=== PATIENT | female | born 1955 | race Native Hawaiian/Other Pacific Islander ===

== ENCOUNTER 2024-07-18 08:59 | Emergency (ER) | payer OTHER, SELFPAY ==
[2024-07-18 09:17] VITALS: PULSE 74; O2SAT 97
[2024-07-18 09:19] VITALS: BP 110/53; PULSE 70; RESP 16; TEMP 36.6; O2SAT 97; BMI 24.5
--- NOTE | 2024-07-18 09:26 | ED_ITS ---
HPI - Back Pain/Injury General Chief Complaint: Back Pain/Injury Stated Complaint: Possible Sciatica flare up Time Seen by Provider: 07/18/24 09:21 History of Present Illness HPI Narrative: Patient brought here by daughter for complaints of low lumbar pain/sacral pain that does not radiate. Patient has history of sciatica but she states does not feel the same. Patient was getting up from a seated position and felt pain in the sacrum yesterday. Since then it has been painful. No prior history of lumbar surgery. Denies any fall or injury. No saddle paresthesia. No leg or foot numbness tingling or weakness. No bowel or bladder incontinence or retention. Feet exposed. Lower back exposed. Patient denies any fever chills. No urinary complaints. Related Data Previous Rx's ?Medication ?Instructions ?Recorded baclofen 20 mg tablet 20 mg PO TID PRN pain (scale score 07/18/24 4-6) #20 tabs Allergies Allergy/AdvReac Type Severity Reaction Status Date / Time No Known Drug Allergies Allergy Verified 07/18/24 09:21 Review of Systems Review of Systems Narrative: GENERAL: Negative chills, fatigue, malaise, fever, sweats. HEENT: Negative sinus pain, ear pain, sore throat RESPIRATORY: Negative dyspnea, cough CARDIOVASCULAR: Negative chest pain, palpitations GASTROINTESTINAL: Negative vomiting, nausea, abdominal pain : Negative dysuria, frequency, hematuria MUSCULOSKELETAL: Positive back, muscle or bony pain SKIN: Negative rash, skin lesions NEUROLOGIC: Negative weakness, numbness ROS Unobtainable: All systems reviewed & are unremarkable except as noted in HPI and below Exam Narrative Exam Narrative: GENERAL: in no distress, not toxic not dyspneic HEAD: Normocephalic. EYES: Pupils equal round ENT: Mucous membranes moist. NECK: Trachea midline. CARDIOVASCULAR: Regular rate and rhythm RESPIRATORY: Clear to auscultation. Breath sounds equal bilaterally. No wheezes, rales, or rhonchi. GASTROINTESTINAL: Abdomen soft, non-tender EXTREMITIES: No gross deformities. BACK: No flank tenderness. There is reproducible mid sacral tenderness. No midline tenderness or step-off of the lumbar spine. Increased pain with attempts to do side bend and leaning forward and back. In a seated position strong bilateral patellar reflexes and ankle flexion-extension. No pain with bilateral straight leg raises. Light touch intact to bilateral legs NEURO: AOx4. Clear speech SKIN: Warm and dry PSYCH: Not anxious, is cooperative Initial Vital Signs Initial Vital Signs: Vital Signs Pulse Rate 74 07/18/24 09:17 Pulse Oximetry 97 07/18/24 09:17 Course Orders Ordered: ED Orders 07/18/24 09:25 XR lumbar spine 2-3V Stat XR sacrum coccyx min 2V Stat Discontinued Medications Hydrocodone Bitart/Acetaminophen (Hydrocodone/Acet 5/325 Tablet) 1 tab PO NOW ONE Stop: 07/18/24 09:25 Last Admin: 07/18/24 10:10 Dose: 1 tab Documented By: VU Ketorolac Tromethamine (Ketorolac 30 Mg/Ml Vial) 30 mg IM NOW ONE Stop: 07/18/24 09:25 Last Admin: 07/18/24 10:10 Dose: 30 mg Documented By: VU Ondansetron HCl (Ondansetron 4 Mg Odt) 4 mg SL NOW ONE Stop: 07/18/24 09:25 Last Admin: 07/18/24 10:10 Dose: 4 mg Documented By: VU Vital Signs Vital signs: Vital Signs - 8 hr 07/18/24 09:17 07/18/24 09:19 07/18/24 09:30 Temperature 97.8 F Pulse Rate 74 70 66 Respiratory Rate 16 Blood Pressure 110/53 L Pulse Oximetry 97 97 97 Oxygen Delivery Method Room Air 07/18/24 09:30 07/18/24 09:48 07/18/24 09:48 Temperature Pulse Rate 64 Respiratory Rate Blood Pressure 117/53 L 128/57 L Pulse Oximetry 98 Oxygen Delivery Method 07/18/24 10:00 07/18/24 10:00 Temperature Pulse Rate 60 Respiratory Rate Blood Pressure 103/51 L Pulse Oximetry 97 Oxygen Delivery Method MDM - Back Pain/Injury Imaging Data X-ray lumbar spine: Radiologist's Impression: [address] [address] XRay Report Signed Patient: Alexa Ashraf MR#: [id number] : 1955 Acct:[id number] Age/Sex: 68 / F Date of Service: 07/18/24 Loc: ED Accession Number: [id number] Procedure: XR lumbar spine 2-3V Ordering Provider: Abdias Alberts MD PROCEDURE: XR LUMBAR SPINE 2-3V INDICATIONS: Pain/injury TECHNIQUE: 3 views of the lumbar spine were acquired. COMPARISON: None. FINDINGS: Bones: 5 [id number] vertebrae are present. There is mild leftward curvature of lumbar spine centered at L3 level. Straightening of normal lumbar lordosis is also seen with 3-4 mm retrolisthesis at L1-2 and L2-3 levels and 4 mm anterolisthesis at L3-4 and L4-5 levels. Loss of disc height, degenerative endplate changes and bilateral facet arthrosis throughout lumbar spine is seen. No vertebral body compression fractures. No suspicious bony lesions. Soft tissues: Overlying bowel gas pattern is normal. No suspicious soft tissue calcifications. IMPRESSION: No acute vertebral body compression fracture. [id number] degenerative disc disease throughout lumbar spine. Grade 1 spondylolisthesis throughout lumbar spine and mild levoscoliosis as above. Dictated by: Jb Clemente M.D. on 07/18/2024 at 9:49 Approved by: Jb Clemente M.D. on 07/18/2024 at 9:53 X-ray sacrum: Radiologist's Impression: [place] [id number] XRay Report Signed Patient: Alexa Ashraf MR#: [id number] : 1955 Acct:[id number] Age/Sex: 68 / F Date of Service: 07/18/24 Loc: ED Accession Number: [id number] Procedure: XR sacrum coccyx min 2V Ordering Provider: Abdias Alberts MD PROCEDURE: XR SACRUM COCCYX MIN 2V INDICATIONS: Pain/injury TECHNIQUE: 3 views of the sacrum and coccyx acquired. COMPARISON: None. FINDINGS: Bones: No fractures or dislocations. Osteoarthritic changes throughout visualized bony pelvis. Degenerative endplate changes are noted in visualized lower lumbar spine. No suspicious bony lesions. Soft tissues: Visualized bowel gas pattern is normal. No suspicious soft tissue densities. IMPRESSION: No acute sacral or coccygeal fracture. Osteoarthritis and degenerative disc disease as above. Dictated by: Jb Clemente M.D. on 07/18/2024 at 9:53 Approved by: Jb Clemente M.D. on 07/18/2024 at 9:54 [facility] Narrative Medical decision making narrative: Patient brought here by daughter for complaints of low lumbar pain/sacral pain that does not radiate. Patient has history of sciatica but she states does not feel the same. Patient was getting up from a seated position and felt pain in the sacrum yesterday. Since then it has been painful. No prior history of lumbar surgery. Denies any fall or injury. No saddle paresthesia. No leg or foot numbness tingling or weakness. No bowel or bladder incontinence or retention. Feet exposed. Lower back exposed.Patient denies any fever chills. No urinary complaints. After history and exam, exam is reassuring. Patient neurologically intact. X- ray lumbar spine and sacrum coccyx will be ordered. No MRI CT scan indicated. Daughter is driving. Toradol [place] Zofran will be ordered. [facility] Medical records reviewed: No recent visit for this complaint Differential considered: Includes but not limited to sciatica lumbar degenerative disc disease compression fracture Imaging studies independently reviewed: X-ray lumbar spine x-ray sacrum coccyx Re-evaluations: 10:02 a.m. Reviewed results and exam with patient. They are reassuring at this time. She does have a family doctor to follow up with. Daughter is driving. She may need outpatient MRI if not improving in a week. However she may need physical therapy referral by primary care as well. Return precautions reviewed. She desires discharge home. Short course of pain medication provided. She desires discharge home. Discussion: Appropriate for discharge home. Exam is reassuring. Return precautions reviewed patient. Patient neurologically intact. Pain controlled. Short course of pain medication provided. She desires discharge home. Diagnosis: Low back pain Discharge Plan Departure Patient Disposition: Home Clinical Impression: Degenerative disc disease Qualifiers: Spinal region: lumbosacral Disc-related pain type: discogenic back pain only Qualified Code(s): M51.370 - Other intervertebral disc degeneration, lumbosacral region with discogenic back pain only Instructions: DI for Osteoarthritis, DI for Degenerative Disc Disease Activity Restrictions/Additional Instructions: Your exam and imaging studies are reassuring however your x-rays do show arthritis and degenerative disc disease which may be contributing to your pain. Please see your family doctor for outpatient physical therapy and MRI of this area. No driving operating machine today as you have been given pain medication. Prescription has been provided for you as well. It will take time for improvement. Return if worse if any questions concerns Prescriptions: New baclofen 20 mg tablet 20 mg PO TID PRN (Reason: pain (scale score 4-6)) Qty: 20 0RF Referrals: ProviderKerline VICKI [Primary Care Provider, Family Practice] Stand Alone Forms: Patient Portal/API
[2024-07-18 09:30] VITALS: BP 117/53; PULSE 66; O2SAT 97
[2024-07-18 09:48] VITALS: BP 128/57; PULSE 64; O2SAT 98
[2024-07-18 10:00] VITALS: BP 103/51; PULSE 60; O2SAT 97
[2024-07-18] MEDS: KETOROLAC 30 MG/ML VIAL IM (10:10)
[2024-07-18] MEDS: HYDROCODONE/ACET 5/325 TABLET 1 TAB PO (10:10)
[2024-07-18] MEDS: ONDANSETRON 4 MG ODT SL (10:10)
== END 2024-07-18 10:22 | disposition home or self-care (01) ==
PROVIDERS: Emergency Provider Emergency Medicine
DX: M51.370 Other intervertebral disc degeneration, lumbosacral region with discogenic back pain only (principal)
CPT/HCPCS: 72100; 72220; 96372; 99283; J1885

== ENCOUNTER → 2024-08-02 11:36 | Outpatient (CLI) | payer OTHER, SELFPAY ==
--- NOTE | 2024-08-02 11:51 | DI.MRI.S_ITS ---
PROCEDURE: MR LUMBAR SPINE WO CON INDICATIONS: Radiculopathy, lumbar region TECHNIQUE: Noncontrast sagittal T1 spin echo and T2 fast echo, sagittal STIR, and T2 fast spin echo through the lumbar spine. In cases with scoliosis, additional coronal T2 fast spin echo may be performed. COMPARISON: None. FINDINGS: Image quality: Excellent. Alignment and Curvature: Mild levoscoliosis with the apex at the L2-3 level. Trace retrolisthesis L1-2. Bone Marrow: Type 1 Modic changes surrounding the posterior L5-S1 disc. Small Schmorl's node defects in the endplates of L1, L2, and L4. Spinal Cord: Conus medullaris terminates at the L1 level. Visualized cord demonstrates normal signal and size. Paraspinous Soft Tissues: No paravertebral masses. T12-L1: Normal appearance. L1-L2: Mild disc desiccation and height loss. Circumferential small disc bulge. L2-L3: Disc desiccation and mild disc height loss. Broad-based right lateral disc protrusion superimposed on mild circumferential disc bulge. Mild ligamentum flavum hypertrophy. Mild central canal narrowing. Disc material touches the L3 nerve root in the right lateral recess. L3-L4: Disc desiccation and mild disc height loss. Moderate facet arthropathy and ligamentum flavum hypertrophy. Broad-based posterior and right lateral disc bulge. There is moderate right foraminal narrowing and some edema of the exiting right L3 nerve root. Mild right lateral recess narrowing and central canal stenosis. L4-L5: Minor disc height loss. Small left foraminal annular tear and broad- based disc bulge into the left foramen just under the exited L4 nerve root. Mild facet arthropathy and prominent ligamentum flavum hypertrophy. Mild bilateral foraminal narrowing. L5-S1: Moderate posterior disc height loss and moderate broad-based posterior disc bulge. Mild to moderate bilateral facet arthropathy, left worse than right. Minor right, and severe left foraminal narrowing. The exiting left L5 nerve root appears edematous. IMPRESSION: Severe left foraminal narrowing at L5-S1 due to disc bulge and facet arthropathy may cause left L5 radiculopathy. Correlate clinically. Degenerative changes at most levels in the lumbar spine the with other potentially clinically significant nerve involvement at the L2-3 and L3-4 levels on the right. Dictated by: Nelly Reis M.D. on 08/03/2024 at 12:05 Approved by: Nelly Reis M.D. on 08/03/2024 at 12:20
== END ==
LOC: MRI 11:37
DX: M48.07 Spinal stenosis, lumbosacral region (principal); M47.27 Other spondylosis with radiculopathy, lumbosacral region; M51.17 Intervertebral disc disorders with radiculopathy, lumbosacral region; M48.061 Spinal stenosis, lumbar region without neurogenic claudication; M47.26 Other spondylosis with radiculopathy, lumbar region; M51.16 Intervertebral disc disorders with radiculopathy, lumbar region
CPT/HCPCS: 72148